=== PATIENT | female | born 1995 | race Caucasian/White ===

== ENCOUNTER 2016-04-15 19:50 | Emergency (ER) | payer OTHER ==
[~2016-04-15] VITALS: Ht 170.2 cm; Wt 70.5 kg
[~2016-04-15 19:50] MED LIST: NUVARING VAG RING VG; PREDNISONE20 MG PO; TRIAM OI 15 0.025 TOP; WELLBUTRIN XL300 M1
[2016-04-15 19:52] VITALS: BP 100/79; PULSE 78; TEMP 98.9
[2016-04-15] MEDS ORDERED: PREDNISONE20 MG PO (22:06)
== END 2016-04-15 22:12 | disposition home or self-care (01) ==
LOC: COL.ER 19:50
DX: R05 Cough (principal)
CPT/HCPCS: J7512

== ENCOUNTER 2017-03-06 10:15 | Emergency (ER) | payer OTHER ==
[~2017-03-06] VITALS: Ht 170.2 cm; Wt 72.7 kg
[2017-03-06 10:19] VITALS: BP 130/89; TEMP 99
[2017-03-06] MEDS ORDERED: ATARAX 10MG/52 MG/ML (10:23)
[2017-03-06] MEDS ORDERED: PROZAC 10MG10 MG PO (10:23)
[2017-03-06 11:01] LABS: COLLECTION METHOD CLEAN CATCH
[2017-03-06 11:09] LABS: PH 7 (5-8); SQUAMOUS EPITHELIAL 0-2 /hpf; URINE APPEARANCE Clear; URINE BACTERIA Occasional /hpf; URINE BILIRUBIN Negative (NEGATIVE); URINE BLOOD Negative (NEGATIVE); URINE COLOR Straw; URINE GLUCOSE Negative (NEGATIVE); URINE KETONE Negative (NEGATIVE); URINE LEUKOCYTE ESTERASE Negative (NEGATIVE); URINE PROTEIN(semi-quant) Negative (NEGATIVE); URINE RBC 0-2 /hpf; URINE UROBILINOGEN Negative (NEGATIVE); URINE WBC 0-2 /hpf
[2017-03-06] MEDS ORDERED: FLEXERIL 1010 MG/TAB PO (11:12)
[2017-03-06 12:23] VITALS: PULSE 75
== END 2017-03-06 12:23 | disposition home or self-care (01) ==
LOC: COL.ER 10:15
PROVIDERS: Physician Assistant
DX: S16.1XXA Strain of muscle, fascia and tendon at neck level, initial encounter (principal); S20.212A Contusion of left front wall of thorax, initial encounter; F41.9 Anxiety disorder, unspecified; Y93.I9 Activity, other involving external motion; Z86.59 Personal history of other mental and behavioral disorders; V43.52XA Car driver injured in collision with other type car in traffic accident, initial encounter